=== PATIENT | female | born 1975 | race Caucasian/White ===

== ENCOUNTER 2020-12-25 12:55 | Outpatient (REF) | payer OTHER, SELFPAY | END 2020-12-25 12:56 | disposition home or self-care (01) | LOC: HO.SCI 12:55 | DX: Z13.89 Encounter for screening for other disorder (principal) ==

== ENCOUNTER 2020-12-28 13:22 | Outpatient (REF) | payer OTHER, SELFPAY ==
--- NOTE | ~2020-12-28 | MR_ITS ---
EXAMINATION: MR BRAIN WITHOUT AND WITH CONTRAST CLINICAL INFORMATION: 45-year-old with right frontal lesion seen on previous MRI exam. COMPARISON: Previous MRI performed at [place] on 11/01/2020 is not available for review. The report is available. TECHNIQUE: Multiplanar, multisequence MRI of the brain was obtained before and after the intravenous administration of 8 mL Gadavist. FINDINGS: Brain Volume: No significant disproportionate global or regional brain parenchymal volume loss. Structural: No malformations. Brain and Meninges: DWI imaging demonstrates no restricted diffusion. Note is made of a 20 x 17 mm T2 hyperintense deep periventricular white matter lesion in the right frontal lobe adjacent to the anterior body and frontal horn of the right lateral ventricle which is centrally T1 hypointense. The superomedial border of this lesion appears to involve the lateral aspect of the anterior body of the ipsilateral corpus callosum. Adjacent to this, there is a 3 mm white matter T2 hyperintensity in the adjacent right elizabeth radiata. No abnormal enhancement is identified. There is a faint punctate T2 hyperintense focus in the left frontal white matter adjacent to the frontal horn. Remainder of the brain is normal in signal intensity. No mass lesions, abnormal enhancement, space-occupying process or mass effect are identified. There is no evidence for hemorrhage, hemosiderin staining or abnormal mineral deposition. Ventricles and Subarachnoid Spaces: The ventricular system and subarachnoid spaces are within normal limits. There is no hydrocephalus. Orbital Structures: The visualized orbital structures are grossly unremarkable within the limitations of the study. Vascular: Normal signal voids are noted in the visualized major intracranial vessels. Sinuses and Osseous Structures: There is a 2.4 cm probable retention cyst along the anteroinferior right maxillary sinus. Minor mucosal thickening in the ethmoid complex. Osseous marrow signal appears unremarkable. MR/MR head/brain wo/w con IMPRESSION: 1. Nonspecific bilateral frontal white matter lesions, predominantly in the deep right frontal white matter with no abnormal enhancement or restricted diffusion. Etiology uncertain. Differential diagnostic considerations include demyelinating disease, nonspecific postinflammatory gliosis or a chronic ischemic insult. 2. If the prior images are provided, an addendum will be done to this report.
== END 2020-12-28 13:23 | disposition home or self-care (01) ==
LOC: HO.MRI 13:22
PROVIDERS: PCP Internal Medicine; Visit Provider Psychiatry & Neurology Neurology
DX: G93.9 Disorder of brain, unspecified (principal)
CPT/HCPCS: 70553; A9585

== ENCOUNTER 2021-04-12 09:18 | Day surgery (SDC) | payer OTHER, SELFPAY ==
--- NOTE | ~2021-04-12 | FL_ITS ---
EXAMINATION: XR LUMBAR PUNCTURE CLINICAL INFORMATION: Demyelinating disease. COMPARISON: None. TECHNIQUE: Fluoroscopic-guided lumbar puncture. FINDINGS: Informed consent was obtained from the patient prior to the procedure. During this process, the procedure and potential alternatives were explained, along with the intended outcome and benefits. The risks of the procedure, as well as the risk of not doing the procedure, were discussed. The patient was given the opportunity to ask questions regarding the procedure and appeared competent to make medical decisions. A signed consent form which documents this discussion was placed in the medical record. With patient lying prone and using sterile technique from a posterior approach, a 22-gauge spinal needle was directed into the thecal sac at the level of the L3-L4 disc space. Opening pressure measured 17 cm of water. A total of 5.5 mL of cerebrospinal fluid was removed. At one point during the procedure, the patient felt somewhat faint and vital signs demonstrated blood pressure of 112/72 with an O2 sat saturation of 98% and pulse rate of 67 bpm. After a few minutes the patient felt back to baseline. FLUOROSCOPY TIME: 0.5 minutes. DOSE AREA PRODUCT: 2.362 Gy-cm2 (becerra-centimeter squared). FL/FL guided lumbar puncture LP IMPRESSION: Lumbar puncture as described above.
[2021-04-12 09:33] VITALS: BMI 30.4
[2021-04-12 09:58] LABS: UPreg QC Valid YES; Urine Pregnancy NEGATIVE (NEGATIVE)
[2021-04-12 09:58] LABS: MANUAL DIFF FLAG NO
[2021-04-12 10:06] LABS: Prothrombin Time 11.8 SEC (9.9-13.0)
[2021-04-12 10:07] LABS: Basophils Absolute Auto 0.1 X10*3/uL (0.0-0.2); Basophils Percent Auto 0.6 % (0-2); Eosinophils Absolute Auto 0.3 X10*3/uL (0.0-0.4); Eosinophils Percent Auto 3.2 % (0-4); Hematocrit 38.5 % (37-47); Hemoglobin 12.5 g/dl (12.0-16.0); Imm Gran Abs Auto 0.03 X10*3/uL (0.00-0.03); Imm Gran Pct Auto 0.4 % (0.0-0.4); Lymphocytes Absolute Auto 1.6 X10*3/uL (1.2-4.9); Lymphocytes Percent Auto 19.6 % (20-40); Mean Corpuscular HGB Conc 32.5 g/dl (31.0-35.0); Mean Corpuscular Hemoglobin 28.5 pg (27.0-33.0); Mean Corpuscular Volume 87.9 fL (80-98); Mean Platelet Volume 8.9 fL (9.4-12.3); Monocytes Absolute Auto 0.6 X10*3/uL (0.1-1.2); Monocytes Percent Auto 6.9 % (2-11); Neutrophils Absolute Auto 5.6 X10*3/uL (2.0-8.3); Neutrophils Percent Auto 69.3 % (45-73); Platelet Count 232 X10*3/uL (160-400); Red Blood Count 4.38 X10*6/uL (4.20-5.50); Red Cell Distribution Width 13.8 % (11.0-16.0); White Blood Count 8.1 X10*3/uL (4.8-10.8)
[2021-04-12 10:09] LABS: Partial Thromboplastin Time 38.5 SEC (24.1-38.0)
[2021-04-12 12:15] VITALS: BP 125/76; PULSE 69; RESP 16; TEMP 36.2; O2SAT 97
[2021-04-12 12:45] VITALS: BP 109/72; PULSE 72; RESP 18; O2SAT 98
[2021-04-12 13:03] LABS: CSF Appearance Bloody; CSF Tube # 1
[2021-04-12 13:15] VITALS: BP 111/61; PULSE 78; RESP 16; O2SAT 97
[2021-04-12 13:28] LABS: Glucose CSF 62 mg/dL
[2021-04-12 13:35] LABS: Oligoclonal Serum Yes
[2021-04-12 13:44] LABS: Appearance CSF HAZY; CSF Tube # 4
[2021-04-12 13:45] VITALS: BP 112/68; PULSE 82; RESP 16; O2SAT 97
[2021-04-12 13:45] LABS: CSF Monos 21 %; CSF Volume 2.5 ML; Color CSF STRAW; Lymphocytes CSF 52 %; Neutrophils CSF 27 %; Red Blood Cell CSF 706 MM*3; White Blood Cell CSF 5 MM*3
[2021-04-12 14:15] VITALS: BP 106/63; PULSE 84; RESP 16; O2SAT 97
[2021-04-12 14:45] VITALS: BP 105/63; PULSE 86; RESP 16; TEMP 36.5; O2SAT 97
[2021-04-17 01:36] LABS: Albumin 4.2 g/dL (3.5-5.2); Albumin, CSF 50.1 mg/dL (8.0-42.0); IgG 1430 mg/dL (600-1640); IgG Synthesis Rate -5.2 mg/24 h (-9.9-3.3); IgG, CSF 7.5 mg/dL (0.8-7.7)
== END 2021-04-12 14:56 | disposition home or self-care (01) ==
PROVIDERS: Psychiatry & Neurology Neurology; Radiology Diagnostic Radiology; PCP Internal Medicine; Visit Provider Radiology Diagnostic Radiology
PROC: 009U3ZZ Drainage of Spinal Canal, Percutaneous Approach (ICD-10-PCS; CPT 62270; principal; 2021-04-12 11:00)
DX: G37.9 Demyelinating disease of central nervous system, unspecified (principal)
CPT/HCPCS: 36415; 62328; 81025; 82042; 82945; 83916; 84157; 85025; 85610; 85730; 87015; 87070; 87205; 89051

== ENCOUNTER 2021-04-25 12:05 | Outpatient (REF) | payer OTHER, SELFPAY ==
[2021-04-25 14:56] LABS: Erythrocyte Sedimentation Rate 14 MM/HR (0-20)
[2021-04-26 08:23] LABS: HIV AB/AG Nonreactive (Nonreactive); HIV Num 1 0.06 S/CO (0.00-0.99)
[2021-04-26 09:00] LABS: Syphilis Screen Nonreactive (Nonreactive)
[2021-04-26 13:01] LABS: Lyme Abs Screen <0.90 index
[2021-04-27 12:11] LABS: Anti Nuclear Antibody Screen NEGATIVE (NEGATIVE)
== END 2021-04-25 12:06 | disposition home or self-care (01) ==
LOC: HO.LAB 12:05
PROVIDERS: PCP Internal Medicine; Visit Provider Psychiatry & Neurology Neurology
DX: Z11.4 Encounter for screening for human immunodeficiency virus [HIV] (principal); G37.9 Demyelinating disease of central nervous system, unspecified
CPT/HCPCS: 36415; 85652; 86038; 86039; 86617; 86618; 86780; 87389

== ENCOUNTER 2021-09-03 12:11 | Emergency (ER) | payer BC, OTHER, SELFPAY ==
--- NOTE | 2021-09-03 12:14 | ECG_ITS ---
Test Reason : palpitations Blood Pressure : / mmHG Vent. Rate : 100 BPM Atrial Rate : 100 BPM P-R Int : 124 ms QRS Dur : 086 ms QT Int : 344 ms P-R-T Axes : 068 062 049 degrees QTc Int : 443 ms Normal sinus rhythm Normal ECG No previous ECGs available Referred By: Generic ED Physician Electronically Signed By:MAGGIE ENGLE MD
[2021-09-03 12:18] VITALS: BP 119/75; PULSE 107; RESP 19; TEMP 36.6; O2SAT 99; BMI 24.0
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
== END 2021-09-03 14:49 | disposition home or self-care (01) ==
LOC: HO.ED 14:46
PROVIDERS: Emergency Provider Emergency Medicine; PCP Internal Medicine
DX: I49.9 Cardiac arrhythmia, unspecified (principal); R00.2 Palpitations; Z79.899 Other long term (current) drug therapy
CPT/HCPCS: 93005; 99283

== ENCOUNTER 2021-09-05 02:26 | Emergency (ER) | payer BC, OTHER, SELFPAY ==
[2021-09-05 02:46] VITALS: BP 138/89; PULSE 105; RESP 16; TEMP 36.9; O2SAT 100; BMI 31.1
[2021-09-05 03:17] LABS: COVID-19 Test Negative (Negative); IDNOW Serial# 9DD0AD1C
--- NOTE | 2021-09-05 03:45 | ED.GENADULT ---
HPI - General Adult General Chief complaint: General Medical Stated complaint: heart palpitations Time Seen by Provider: 09/05/21 03:45 Source: patient Mode of arrival: ambulatory Limitations: no limitations History of Present Illness HPI narrative: Nausea and vomiting and palpitations. Patient has had this happen a few times. Patient with a known pituitary tumor, patient is being treated for the pituitary at [facility]. Patient states this all happens when she sleeps on her left side and feels shakey. Onset (ago): week(s) Severity: mild Associated symptoms: fever/chills, headaches, nausea/vomiting and other (feels shakey) Related Data Allergies Allergy/AdvReac Type Severity Reaction Status Date / Time No Known Allergies Allergy Verified 04/12/21 09:33 Review of Systems Constitutional: Constitutional: Reports no additional constitutional complaints Eyes: Eyes: Reports no additional eye complaints ENT: Denies dizziness Cardiovascular: Cardiovascular: Reports no additional cardiovascular complaints Respiratory: Respiratory: Reports as per HPI Gastrointestinal: Gastrointestinal: Reports no additional gastrointestinal complaints Genitourinary: Genitourinary: Reports no additional female genitourinary complaints Musculoskeletal: Musculoskeletal: Reports no additional musculoskeletal complaints Integumentary/Breasts: Skin/Breast: Denies rash Neurologic: Reports system reviewed and no additional complaints, except as documented, Denies dizziness and Denies Sensory deficit (Neuro) Psychiatric: Psychiatric: Denies anxiety PMF Past Medical History Medical History Pituitary tumor Social History Social History Alcohol intake: never Patient Tobacco Use Status: Never used Tobacco Use of substances other than those prescribed or required for medical reasons: No Advance Directives: No Patient : No Course Reevaluation(s) Reevaluation #1: Patient with no arhythmias, normal labs, normal EKG, normal TSH. Will discharge home and have patient follow up with her pMD Time: 05:03 Medical Decision Making Lab Data Result diagrams: 09/05/21 04:10 09/05/21 04:10 Labs: Lab Results 09/05/21 09/05/21 09/05/21 Range/Units 02:56 04:10 04:10 WBC 8.3 (4.8-10.8) X10*3/uL RBC 4.39 (4.20-5.50) X10*6/uL Hgb 12.5 (12.0-16.0) g/dl Hct 38.2 (37.0-47.0) % MCV 87.0 (80.0-98.0) fL MCH 28.5 (27.0-33.0) pg MCHC 32.7 (31.0-35.0) g/dl RDW 13.8 (11.0-16.0) % Plt Count 238 (160-400) X10*3/uL MPV 8.9 L (9.4-12.3) fL Immature Gran % (Auto) 0.2 (0.0-0.4) % Neut % (Auto) 74.1 H (45-73) % Lymph % (Auto) 16.1 L (20-40) % Iron % (Auto) 8.1 (2-11) % Eos % (Auto) 1.3 (0-4) % Baso % (Auto) 0.2 (0-2) % Lymph # (Auto) 1.3 (1.2-4.9) X10*3/uL Iron # (Auto) 0.7 (0.1-1.2) X10*3/uL Eos # (Auto) 0.1 (0.0-0.4) X10*3/uL Baso # (Auto) 0.0 (0.0-0.2) X10*3/uL Abs Immat Gran (auto) 0.02 (0.00-0.03) X10*3/uL Absolute Neuts (auto) 6.1 (2.0-8.3) x10*3/uL Absolute Nucleated RBC 0.000 (0.0-0.012) X10*3/uL Nucleated RBC % (auto) 0.0 (0.0-0.2) /100WBC Sodium 137 (135-145) mmol/L Potassium 4.1 (3.3-5.1) mmol/L Chloride 102 (96-108) mmol/L Carbon Dioxide 25 (22-29) mmol/L Anion Gap 14 (12-20) BUN 8 L (9-16) mg/dL Creatinine 0.81 (0.5-1.4) mg/dL Estim Creat Clear Calc 87.7 Estimated GFR > 60 Random Glucose 105 (60-115) mg/dL Calcium 9.6 (8.4-10.2) mg/dL Troponin I High Sens (<3.5-17.0) ng/L TSH 2.18 (0.32-4.0) uIU/mL COVID-19 (JORGE L) Negative (Negative) COVID-19 Clin Com See Note 09/05/21 Range/Units 04:10 WBC (4.8-10.8) X10*3/uL RBC (4.20-5.50) X10*6/uL Hgb (12.0-16.0) g/dl Hct (37.0-47.0) % MCV (80.0-98.0) fL MCH (27.0-33.0) pg MCHC (31.0-35.0) g/dl RDW (11.0-16.0) % Plt Count (160-400) X10*3/uL MPV (9.4-12.3) fL Immature Gran % (Auto) (0.0-0.4) % Neut % (Auto) (45-73) % Lymph % (Auto) (20-40) % Iron % (Auto) (2-11) % Eos % (Auto) (0-4) % Baso % (Auto) (0-2) % Lymph # (Auto) (1.2-4.9) X10*3/uL Iron # (Auto) (0.1-1.2) X10*3/uL Eos # (Auto) (0.0-0.4) X10*3/uL Baso # (Auto) (0.0-0.2) X10*3/uL Abs Immat Gran (auto) (0.00-0.03) X10*3/uL Absolute Neuts (auto) (2.0-8.3) x10*3/uL Absolute Nucleated RBC (0.0-0.012) X10*3/uL Nucleated RBC % (auto) (0.0-0.2) /100WBC Sodium (135-145) mmol/L Potassium (3.3-5.1) mmol/L Chloride (96-108) mmol/L Carbon Dioxide (22-29) mmol/L Anion Gap (12-20) BUN (9-16) mg/dL Creatinine (0.5-1.4) mg/dL Estim Creat Clear Calc Estimated GFR Random Glucose (60-115) mg/dL Calcium (8.4-10.2) mg/dL Troponin I High Sens < 3.5 (<3.5-17.0) ng/L TSH (0.32-4.0) uIU/mL COVID-19 (JORGE L) (Negative) COVID-19 Clin Com ECG Data Attestation: I personally reviewed and interpreted this ECG as follows: Interpretation: sinus of [address] or twave changes Discharge Plan Discharge Clinical Impression: Heart palpitations Patient Disposition: Home, Self-Care Instructions: Heart Palpitations (ED) Referrals: Physician,Unknown J [Primary Care Provider] - 1 week Interventions: ED Discharge Assessment Last Done: 09/05/21 05:16 Discharge Date/Time: 09/05/21 05:16
--- NOTE | 2021-09-05 03:52 | ECG_ITS ---
Test Reason : PALPITATIONS Blood Pressure : / mmHG Vent. Rate : 098 BPM Atrial Rate : 098 BPM P-R Int : 112 ms QRS Dur : 088 ms QT Int : 372 ms P-R-T Axes : 046 052 035 degrees QTc Int : 474 ms Normal sinus rhythm Normal ECG When compared with ECG of 03-SEP-2021 12:18, No significant change was found Referred By: Kofi Koroma Electronically Signed By:MAGGIE ENGLE MD
[2021-09-05 04:03] VITALS: BP 120/83; PULSE 87; RESP 12; TEMP 36.7; O2SAT 97
[2021-09-05 04:15] LABS: Basophils Percent Auto 0.2 % (0-2); Eosinophils Absolute Auto 0.1 X10*3/uL (0.0-0.4); Eosinophils Percent Auto 1.3 % (0-4); Hematocrit 38.2 % (37.0-47.0); Hemoglobin 12.5 g/dl (12.0-16.0); Imm Gran Abs Auto 0.02 X10*3/uL (0.00-0.03); Imm Gran Pct Auto 0.2 % (0.0-0.4); Lymphocytes Absolute Auto 1.3 X10*3/uL (1.2-4.9); Lymphocytes Percent Auto 16.1 % (20-40); MANUAL DIFF FLAG NO; Mean Corpuscular HGB Conc 32.7 g/dl (31.0-35.0); Mean Corpuscular Hemoglobin 28.5 pg (27.0-33.0); Mean Platelet Volume 8.9 fL (9.4-12.3); Monocytes Absolute Auto 0.7 X10*3/uL (0.1-1.2); Monocytes Percent Auto 8.1 % (2-11); Neutrophils Absolute Auto 6.1 x10*3/uL (2.0-8.3); Neutrophils Percent Auto 74.1 % (45-73); Platelet Count 238 X10*3/uL (160-400); Red Blood Count 4.39 X10*6/uL (4.20-5.50); Red Cell Distribution Width 13.8 % (11.0-16.0); White Blood Count 8.3 X10*3/uL (4.8-10.8)
[2021-09-05 04:36] LABS: Anion Gap 14 (12-20); Blood Urea Nitrogen 8 mg/dL (9-16); Calcium 9.6 mg/dL (8.4-10.2); Carbon Dioxide 25 mmol/L (22-29); Chloride 102 mmol/L (96-108); Creatinine Clr Calc Pharmacy 87.7; Estimated Glomerular Filt Rate > 60; Glucose Random 105 mg/dL (60-115); Potassium 4.1 mmol/L (3.3-5.1); Sodium 137 mmol/L (135-145)
[2021-09-05 04:42] LABS: Troponin-I High Sensitivity < 3.5 ng/L (<3.5-17.0)
[2021-09-05 04:57] LABS: TSH reflex Free T4 2.18 uIU/mL (0.32-4.0)
== END 2021-09-05 05:16 | disposition home or self-care (01) ==
PROVIDERS: Emergency Provider Emergency Medicine
DX: R00.2 Palpitations (principal); Z20.822 Contact with and (suspected) exposure to COVID-19; D35.2 Benign neoplasm of pituitary gland
CPT/HCPCS: 36415; 80048; 84443; 84484; 85025; 87635; 93005; 99283; 99284

== ENCOUNTER 2021-10-04 05:01 | Emergency (ER) | payer BC, OTHER, SELFPAY ==
--- NOTE | ~2021-10-04 | US_ITS ---
EXAMINATION: US PELVIS CLINICAL INFORMATION: Right lower quadrant pain. Rule out torsion. COMPARISON: None TECHNIQUE: Ultrasound of the pelvis is performed using both transabdominal and transvaginal transducers along with Doppler. Transvaginal imaging is performed due to inadequate visualization transabdominally. Doppler, color and grayscale evaluation of the ovarian vessels including waveform spectral analysis. FINDINGS: The uterus is anteverted and measures 7.4 x 3.4 x 5.2 cm in dimension. No focal uterine lesion is seen. Endometrial thickness is normal measuring 0.2 cm. The right ovary is enlarged and measures 5.9 x 5 x 4.8 cm in dimension. There is a 4.4 cm cm simple right ovarian cyst. No imaging follow-up is indicated based on size criteria in a premenopausal patient. The left ovary is normal-appearing and measures 2.3 x 2.3 x 1.9 cm. Arterial and Doppler flow is documented to both ovaries and there is no evidence of torsion. There is no fluid seen in the pelvis. US/US pelvic and transvaginal IMPRESSION: 4.3 cm simple right ovarian cyst. No evidence of torsion.
--- NOTE | ~2021-10-04 | US_ITS ---
EXAMINATION: US PELVIS CLINICAL INFORMATION: Right lower quadrant pain. Rule out torsion. COMPARISON: None TECHNIQUE: Ultrasound of the pelvis is performed using both transabdominal and transvaginal transducers along with Doppler. Transvaginal imaging is performed due to inadequate visualization transabdominally. Doppler, color and grayscale evaluation of the ovarian vessels including waveform spectral analysis. FINDINGS: The uterus is anteverted and measures 7.4 x 3.4 x 5.2 cm in dimension. No focal uterine lesion is seen. Endometrial thickness is normal measuring 0.2 cm. The right ovary is enlarged and measures 5.9 x 5 x 4.8 cm in dimension. There is a 4.4 cm cm simple right ovarian cyst. No imaging follow-up is indicated based on size criteria in a premenopausal patient. The left ovary is normal-appearing and measures 2.3 x 2.3 x 1.9 cm. Arterial and Doppler flow is documented to both ovaries and there is no evidence of torsion. There is no fluid seen in the pelvis. US/US pelvic ovarian doppler IMPRESSION: 4.3 cm simple right ovarian cyst. No evidence of torsion.
--- NOTE | ~2021-10-04 | CT_ITS ---
EXAMINATION: CT ABDOMEN AND PELVIS WITHOUT CONTRAST CLINICAL INFORMATION: Right flank pain COMPARISON: None TECHNIQUE: Multidetector volumetric imaging was performed from the superior aspect of the liver through the pubic symphysis. Sagittal and coronal reformatted images were obtained on the technologist's workstation. This CT examination was performed using dose optimization techniques as appropriate, variously including the following: *Automated exposure control *Adjustment of mA and/or kV according to patient size (this includes techniques or standardized protocols for targeted exams where dose is matched to indication/reason for exam; i.e. extremities or head) *Use of iterative reconstruction technique DLP: 778 mGy-cm FINDINGS: LUNG BASES: The visualized lung bases are unremarkable. LIVER, GALLBLADDER, AND BILIARY TREE: The liver is normal in size, shape, and attenuation. No focal hepatic lesion or biliary ductal dilatation is present. The gallbladder is unremarkable with no evidence of radiopaque gallstones, gallbladder wall thickening, or obvious pericholecystic inflammatory changes. PANCREAS: Unremarkable. SPLEEN: Unremarkable. ADRENAL GLANDS: Unremarkable. KIDNEYS AND URETERS: The kidneys are normal in size, shape, and attenuation. Fullness of both the right and left renal collecting systems. The ureters are decompressed. No calculi. No perinephric stranding. BLADDER: Unremarkable. GASTROINTESTINAL TRACT: The small and large bowel are unremarkable. The appendix is unremarkable. ABDOMINAL WALL: No significant hernia is appreciated. LYMPH NODES: Normal. VASCULAR: Unremarkable. PELVIC VISCERA: Anteverted uterus. Right adnexal 4.5 cm simple cyst. This is almost certainly benign. OSSEOUS STRUCTURES: No acute or suspicious osseous abnormality. Mild degenerative change at L5-S1. CT/CT abdomen pelvis wo con IMPRESSION: Mild fullness of both renal collecting systems. The ureters are decompressed. No calculi. 4.5 cm right adnexal simple cyst. Fleischner guidelines were followed.
[2021-10-04 05:04] VITALS: BP 122/79; PULSE 106; RESP 18; TEMP 37.6; O2SAT 96; BMI 28.6
--- NOTE | 2021-10-04 05:59 | ED_ITS ---
HPI - General Adult General Chief complaint: General Medical Stated complaint: lower R side & back pain Time Seen by Provider: 10/04/21 05:49 History of Present Illness HPI narrative: Patient is a 45-year-old female present today with having right flank pain radiating to the right lower quadrant it is sharp in nature. No fever no chills. No cough no congestion or upper respiratory symptoms. On and off for the last 2 days. No change in bowel movement. No history of kidney stone no history of abdominal surgery in the past. Patient from home. Does not think she is . No diaphoresis. Pain was extreme tonight. Related Data Allergies Allergy/AdvReac Type Severity Reaction Status Date / Time No Known Allergies Allergy Verified 04/12/21 09:33 Review of Systems Review of Systems: No fever no chills Yes all other systems are reviewed and are negative [facility] Past Medical History Attestation statement: The following information was validated with the patient. Source: unable to obtain Medical History Pituitary tumor Social History Social History Advance Directives: No Patient : No Physical Exam ED Vital Signs: Vital Signs - 24 hr 10/04/21 05:04 Temperature 99.6 F Pulse Rate 106 H Respiratory Rate 18 Blood Pressure 122/79 Pulse Oximetry 96 BMI result Body Mass Index 28.6 Appearance: Alert. Oriented X3. No acute distress. Eyes: Pupils equal, round and reactive to light. ENT: Pharynx normal. Neck: Normal inspection. Neck supple. No lymph nodes noted. No crepitus CVS: Normal heart rate and rhythm. Pulses normal. Normal S1 and S2 Respiratory: No respiratory distress. Breath sounds normal. No Wheezing. No rales Abdomen: Soft and nontender. No rigidity. No distention. good BS x4 Skin: Skin warm and dry. Normal skin color. Normal skin turgor. Extremities: No lower extremity edema. Neurovascular intact to all extremities. No Lacerations. No Rash Neuro: Oriented X 3. No motor deficit. No sensory deficit. Moving all extermities. No slurred speech Medical Decision Making MDM Narrative Medical decision making narrative: Patient has flank pain radiating to the right lower quadrant. CT scan did not show any acute evidence of kidney stone. It did show a 4.5 cm adnexal cyst. Ultrasound was ordered. Labs are still pending. Discharge Plan Discharge Clinical Impression: Abdominal pain
--- NOTE | 2021-10-04 07:30 | PC.NURSE ---
portable ultrasound at bedside, pt aware of plan of care
[2021-10-04 08:06] VITALS: BP 118/74; PULSE 85; RESP 16; TEMP 36.7; O2SAT 97
[2021-10-04 08:24] LABS: MANUAL DIFF FLAG NO
[2021-10-04 08:25] LABS: Basophils Percent Auto 0.4 % (0-2); Eosinophils Absolute Auto 0.1 X10*3/uL (0.0-0.4); Hematocrit 39.3 % (37.0-47.0); Hemoglobin 12.9 g/dl (12.0-16.0); Imm Gran Abs Auto 0.03 X10*3/uL (0.00-0.03); Imm Gran Pct Auto 0.3 % (0.0-0.4); Lymphocytes Absolute Auto 1.3 X10*3/uL (1.2-4.9); Mean Corpuscular HGB Conc 32.8 g/dl (31.0-35.0); Mean Corpuscular Hemoglobin 28.1 pg (27.0-33.0); Mean Corpuscular Volume 85.6 fL (80.0-98.0); Mean Platelet Volume 9.3 fL (9.4-12.3); Monocytes Absolute Auto 0.7 X10*3/uL (0.1-1.2); Monocytes Percent Auto 7.1 % (2-11); Neutrophils Absolute Auto 7.1 x10*3/uL (2.0-8.3); Neutrophils Percent Auto 77.2 % (45-73); Platelet Count 199 X10*3/uL (160-400); Red Blood Count 4.59 X10*6/uL (4.20-5.50); Red Cell Distribution Width 13.5 % (11.0-16.0); White Blood Count 9.2 X10*3/uL (4.8-10.8)
[2021-10-04 08:29] LABS: UPreg QC Valid YES; Urine Pregnancy NEGATIVE (NEGATIVE)
[2021-10-04 08:30] LABS: Appearance Urine CLEAR; Color Urine YELLOW; Glucose Urine UA NEG (NEG); Leukocyte Esterase Urine TRACE (NEG); Nitrite Urine NEG (NEG); PH 6.5 (5.0-8.0); Specific Gravity - Urine 1.015 (1.005-1.025); UACC Culture Trigger YES; Urine Blood TRACE (NEG); Urine Ketones NEG (NEG); Urine Protein NEG (NEG-TRACE)
[2021-10-04 08:43] LABS: Alanine Aminotransferase 18 U/L (0-31); Albumin Level 4.5 g/dL (3.5-5.0); Alkaline Phosphatase 63 U/L (39-117); Anion Gap 14 (12-20); Aspartate Amino Transferase 16 U/L (5-31); Bilirubin Direct 0.2 mg/dL (0.0-0.5); Bilirubin Total 0.6 mg/dL (0.0-1.0); Blood Urea Nitrogen 10 mg/dL (9-16); Calcium 9.8 mg/dL (8.4-10.2); Carbon Dioxide 27 mmol/L (22-29); Chloride 102 mmol/L (96-108); Creatinine Clr Calc Pharmacy 89.6; Estimated Glomerular Filt Rate > 60; Glucose Random 115 mg/dL (60-115); Lipase 20 U/L (8-78); Potassium 4.2 mmol/L (3.3-5.1); Sodium 139 mmol/L (135-145); Total Protein 7.9 g/dL (6.5-8.0)
[2021-10-04 08:44] LABS: UACC CULT YES
[2021-10-04 08:45] LABS: Calcium Oxalate Crystals Urine TRACE /LPF; Mucus Urine 1+ /LPF; Renal Epithelial Cells Urine TRACE /LPF; Squamous Epithelial Cell Urine 1+ /LPF
[2021-10-04] MEDS: Ketorolac Tromethamine 30 MG/ML VIAL IVPUSH (08:49)
[2021-10-04] MEDS: 0.9 % Sodium Chloride 1,000 ML 999 ML IV (08:49)
[2021-10-04 10:41] VITALS: BP 88/34; PULSE 102
[2021-10-04 12:29] VITALS: BP 100/64; PULSE 80; RESP 14; TEMP 36.7; O2SAT 97
[2021-10-04 13:10] VITALS: BP 109/77; PULSE 90; RESP 18; O2SAT 99
== END 2021-10-04 13:11 | disposition home or self-care (01) ==
PROVIDERS: Emergency Provider Emergency Medicine Emergency Medical Services; PCP Internal Medicine
DX: M54.50 Low back pain, unspecified (principal); R10.31 Right lower quadrant pain; G89.29 Other chronic pain; Z79.899 Other long term (current) drug therapy
CPT/HCPCS: 36415; 74176; 76830; 76856; 80048; 80076; 81001; 81025; 83690; 85025; 87086; 93975; 96361; 96374; 99284; J1885